=== PATIENT | female | born 1970 | race Caucasian/White ===

== ENCOUNTER 2020-03-09 07:53 | Outpatient (CLI) | payer OTHER, SELFPAY ==
--- NOTE | ~2020-03-09 | DEXA_ITS ---
Bone Density Report Name: Jennifer Castro Age: 49 Sex: Female Ethnicity: White Date of : 1970 Indication: osteopenia; prior fracture; hysterectomy; Referring Provider: Molly Mckeon Study: Bone densitometry was performed. Exam Date: March 09, 2020 Accession number: [id number] Bone Density: Region BMD T-score Z-score Classification AP Spine (L1-L4) 0.846 -1.8 -1.0 Osteopenia Femoral Neck (Left) 0.614 -2.1 -1.3 Osteopenia Total Hip (Left) 0.789 -1.3 -0.8 Osteopenia Total Hip Bilateral Avg 0.781 -1.4 -0.8 Osteopenia Femoral Neck (Right) 0.605 -2.2 -1.4 Osteopenia Total Hip (Right) 0.773 -1.4 -0.9 Osteopenia World Health Organization criteria for BMD impression classify patients as: Normal (T-score at or above -1.0), Osteopenia (T-score between -1.0 and -2.5), or Osteoporosis (T-score at or below -2.5). 10-year Fracture Risk(1): Major Osteoporotic Fracture 11% Hip Fracture 1.9% Reported Risk Factors: [place] (), Neck BMD=0.605, BMI=24.7, previous fracture (1) FRAX(R) Version 3.08. Fracture probability calculated for an untreated patient. Fracture probability may be lower if the patient has received treatment. Previous Exams: Region Exam Age BMD T-score BMD Change BMD Change Date g/cm2 vs Baseline vs Previous AP Spine(L1-L4) 03/09/2020 49 0.846 -1.8 -0.177(-17.3%) -0.055(-6.1%)* 11/26/2017 47 0.901 -1.3 -0.122(-11.9%) -0.028(-3.0%)* 08/09/2015 45 0.929 -1.1 -0.094(-9.2%)# -0.012(-1.3%)# 08/13/2011 41 0.941 -1.0 -0.082(-8.0%)# -0.082(-8.0%)# 09/08/2008 38 1.023 -0.2 Total Hip(Left) 03/09/2020 49 0.789 -1.3 -0.089(-10.2%) -0.131(-14.2%) 11/26/2017 47 0.920 -0.2 0.042(4.7%)# 0.056(6.4%)* 08/09/2015 45 0.864 -0.6 -0.014(-1.6%)# -0.034(-3.8%)# 08/13/2011 41 0.898 -0.4 0.020(2.3%)# 0.020(2.3%)# 09/08/2008 38 0.878 -0.5 Total Hip(Right) 03/09/2020 49 0.773 -1.4 -0.099(-11.4%) -0.141(-15.5%) 11/26/2017 47 0.914 -0.2 0.042(4.8%)# 0.051(5.9%)* 08/09/2015 45 0.864 -0.6 -0.009(-1.0%)# -0.032(-3.5%)# 08/13/2011 41 0.895 -0.4 0.023(2.6%)# 0.023(2.6%)# 09/08/2008 38 0.872 -0.6 *Denotes significance at 95% confidence level, LSC for AP Spine = 0.022 g/cm2, LSC for Total Hip = 0.027 g/cm2 Clinical Information Provided by Patient: Has had a low trauma fracture Has the following medical conditions: Hysterectomy Patient maximum height was 63 Menopause Age: 31 Drinks caffeinated beverages Onset of me
== END 2020-03-09 07:54 | disposition home or self-care (01) ==
LOC: ANHIMG 07:54
PROVIDERS: PCP Internal Medicine; Visit Provider Student in an Organized Health Care Education/Training Program
DX: Z78.0 Asymptomatic menopausal state (principal); M85.88 Other specified disorders of bone density and structure, other site; M85.852 Other specified disorders of bone density and structure, left thigh; M85.851 Other specified disorders of bone density and structure, right thigh
CPT/HCPCS: 77080

== ENCOUNTER → 2020-05-31 12:55 | Outpatient (CLI) | payer OTHER, SELFPAY ==
--- NOTE | ~2020-05-31 | MM_ITS ---
EXAMINATION: MM screening binh BI w robbie HISTORY: Screening mammogram TECHNIQUE: Craniocaudal and mediolateral oblique 3-D tomosynthesis images were obtained and synthetic 2-D images were generated. CAD analysis was submitted and interpreted. COMPARISON: 04/27/2019, 920 bilateral digital screening mammogram examinations BREAST PARENCHYMAL COMPOSITION: There are scattered areas of fibroglandular density. FINDINGS: There is no evidence of suspicious mass, calcification, or architectural distortion to sugg est malignancy in either breast. There has been no suspicious interval change. IMPRESSION: 1. No mammographic evidence of malignancy. 2. Recommend routine screening mammography in one year. BI-RADS Category 1: Negative Reviewed, dictated and finalized at location A. RVISOR SOUND TECHNICIAN
== END ==
PROVIDERS: PCP Internal Medicine; Visit Provider Student in an Organized Health Care Education/Training Program
DX: Z12.31 Encounter for screening mammogram for malignant neoplasm of breast (principal)
CPT/HCPCS: 77063; 77067

== ENCOUNTER → 2021-07-24 12:08 | Outpatient (CLI) | payer OTHER, SELFPAY ==
--- NOTE | ~2021-07-24 | MM_ITS ---
EXAMINATION: MM screening binh BI w robbie HISTORY: Screening TECHNIQUE: Craniocaudal and mediolateral oblique 3-D tomosynthesis images were obtained and synthetic 2-D images were generated. CAD analysis was submitted and interpreted. COMPARISON: Comparison to multiple prior studies sequentially, with oldest reviewed study dated 12/18. BREAST PARENCHYMAL COMPOSITION: There are scattered areas of fibroglandular density. FINDINGS: There is no evidence of suspicious mass, calcification, or architectural distortion to sugg est malignancy in either breast. There has been no suspicious interval change. IMPRESSION: 1. No mammographic evidence of malignancy. 2. Recommend routine screening mammography in one year. BI-RADS Category 1: Negative Reviewed, dictated and finalized at location B. ERN AND CHAIN MAKER
== END ==
PROVIDERS: PCP Internal Medicine; Visit Provider Student in an Organized Health Care Education/Training Program
DX: Z12.31 Encounter for screening mammogram for malignant neoplasm of breast (principal)
CPT/HCPCS: 77063; 77067

== ENCOUNTER → 2022-08-03 15:50 | Outpatient (CLI) | payer OTHER, SELFPAY ==
--- NOTE | ~2022-08-03 | MM_ITS ---
EXAMINATION: MM screening binh BI w robbie HISTORY: Screening TECHNIQUE: Craniocaudal and mediolateral oblique 3-D tomosynthesis images were obtained and synthetic 2-D images were generated. CAD analysis was submitted and interpreted. COMPARISON: Comparison to multiple prior studies sequentially, with oldest reviewed study dated 02/18. BREAST PARENCHYMAL COMPOSITION: There are scattered areas of fibroglandular density. FINDINGS: There is no evidence of suspicious mass, calcification, or architectural distortion to sugg est malignancy in either breast. There has been no suspicious interval change. IMPRESSION: 1. No mammographic evidence of malignancy. 2. Recommend routine screening mammography in one year. BI-RADS Category 1: Negative Reviewed, dictated and finalized at location A. EE DEVELOPER
== END ==
PROVIDERS: PCP Obstetrics & Gynecology; Visit Provider Obstetrics & Gynecology
DX: Z12.31 Encounter for screening mammogram for malignant neoplasm of breast (principal)
CPT/HCPCS: 77063; 77067

== ENCOUNTER 2023-04-22 16:42 | Observation (INO) | payer OTHER, SELFPAY ==
[2023-04-22] VITALS (24 sets, daily range): BP systolic 123–152; BP diastolic 76–95; PULSE 69–106; RESP 11–19; TEMP 36.2–36.5; O2SAT 97–100; BMI 25.7
--- NOTE | ~2023-04-22 | XR_ITS ---
EXAMINATION: XR chest 2V DATE: 04/22/2023 16:58 INDICATION: Chest pain. Numbness of hands. TECHNIQUE: Frontal and lateral views of the chest were obtained. COMPARISON: Chest 2 views 08/19/2009 FINDINGS: There is mild scarring at the lung apices. No pleural effusion or pneumothorax. The heart s ize is normal. IMPRESSION: 1. Stable mild scarring at the lung apices. Reviewed, dictated and finalized at location E.
--- NOTE | ~2023-04-22 | NM_ITS ---
EXAMINATION: NM stress w perf spect multi DATE: 04/23/2023 13:12 INDICATION: Chest pain TECHNIQUE: Rest images were obtained following intravenous administration of 10.2 mCi Tc99m tetrofosm in (MediaMath). The patient performed an exercise activity. At peak exercise, 32.7 mCi Tc99m tetrofosmi n (Dtimeview) was administered intravenously, and stress images were obtained. Data was reconstructed i nto short axis and horizontal and vertical long axis SPECT images. Gated SPECT images were also obtai khang. COMPARISON: None. FINDINGS: There is normal left ventricular perfusion without definite evidence of reversible or fixed perfusion abnormality to suggest ischemia or infarction. There is normal left ventricular chamber size, wall motion and ejection fraction. Left ventricular ejection fraction measures >70%. IMPRESSION: 1. Normal myocardial perfusion at rest and during stress. 2. Left ventricular ejection fraction measuring >70%. Reviewed, dictated and finalized at location A.
--- NOTE | 2023-04-22 16:44 | ECG_ITS ---
Measurements Intervals [place] Rate: 99 P: 67 VA: 133 QRS: 12 QRSD: 82 T: 37 QT: 337 QTc: 433 Interpretive Statements SINUS RHYTHM BASELINE ARTIFACT POSSIBLE LEFT ATRIAL ENLARGEMENT [-0.1mV P-WAVE IN V1/V2] MODERATE ST DEPRESSION [0.05+ mV ST DEPRESSION] ABNORMAL ECG COMPARED TO ECG 03/12/2019 19:27:07 ST (T WAVE) DEVIATION NOW PRESENT Electronically Signed On 04-22-2023 17:29:28 CDT by Preston Segura M.D.
[2023-04-22 17:00] LABS: Basophils Absolute Auto 0.1 K/mm3 (0.0-0.1); Basophils Percent Auto 1.2 % (0.2-1.2); Eosinophils Absolute Auto 0.1 K/mm3 (0-0.3); Eosinophils Percent Auto 1.1 % (0-4.4); Hematocrit 47.5 % (37.0-47.0); Hemoglobin 15.5 g/dL (12.0-15.0); Immature Granulocyte Absolute 0.02 K/mm3 (0.00-0.031); Immature Granulocyte Percent A 0.2 % (0-0.5); Lymphocytes Absolute Auto 3.06 K/mm3 (0.9-3.2); Lymphocytes Percent Auto 34.5 % (18.3-44.2); Mean Corpuscular HGB Conc 32.6 g/dl (32-36); Mean Platelet Volume 9.2 fl (7.4-10.4); Monocytes Absolute Auto 0.6 K/mm3 (0.1-0.6); Monocytes Percent Auto 6.8 % (2.6-8.5); Neutrophils Percent Auto 56.2 % (45.5-73.1); Platelet Count Result 283 k/mm3 (150-375); Red Cell Distribution Width 11.9 % (11.5-14.5); White Blood Count 8.9 K/mm3 (4.5-10.0)
[2023-04-22 17:10] LABS: Prothrombin Time 13.4 Seconds (11.1-14.7)
[2023-04-22] MEDS: ASPIRIN 81 MG CHEWABLE TABLET 324 MG PO (17:10)
[2023-04-22 17:11] LABS: Partial Thromboplastin Time 32.3 SECONDS (22.3-36.8)
[2023-04-22 17:13] LABS: Alanine Aminotransferase 22 U/L (6-35); Alkaline Phosphatase 128 U/L (38-126); Anion Gap 11 mmol/L (8-16); Aspartate Amino Transferase 37 U/L (14-36); Bilirubin,Total 1.5 mg/dL (0.2-1.3); Blood Urea Nitrogen 9 mg/dL (7-17); Calcium 9.5 mg/dL (8.4-10.2); Carbon Dioxide 26 mmol/L (22-30); Chloride 101 mmol/L (98-107); Estimated CRCL calculation 76 ml/min; Estimated Glomerular Filt Rate > 60; Glucose 124 mg/dL (65-110); Lipase 168 U/L (23-300); Potassium 3.1 mmol/L (3.4-5.0); Sodium 138 mmol/L (137-145)
[2023-04-22 17:24] LABS: Troponin I < 0.012 ng/mL (0.000-0.034)
[2023-04-22] MEDS: NITROGLYCERIN SL 0.4 MG TABLET SUBLINGUAL (17:25)
--- NOTE | 2023-04-22 17:26 | ED.CHESTPAIN ---
HPI - Chest Pain General Chief Complaint: Chest Pain Stated Complaint: chest pain Time Seen by Provider: 04/22/23 16:57 History of Present Illness HPI narrative: Pt presents with chest pressure and SOB since 1600. Pt says radiates to neck. Pt has not had recent CP. onset 02/14 now 09/14. Pt had normal cardiac cath years ago but no cardiology visits since. Related Data Home Medications Medication Instructions Recorded Confirmed ascorbate calcium (vitamin C) 500 500 mg PO DAILY 10/04/20 10/10/21 mg tablet multivitamin (Daily Multi-Vitamin 1 tablet PO DAILY 10/04/20 10/10/21 tablet) L.helveticus-Bifidobacterium cap PO 01/21/23 long-mag cit 3 billion cell-57 mg capsule (Mood Support Probiotic) ashwakhloedha root extract 300 mg 1,300 mg PO 01/21/23 capsule Allergies Allergy/AdvReac Type Severity Reaction Status Date / Time No Known Allergies Allergy Unknown Verified 01/21/23 14:42 Review of Systems Review of Systems: All systems reviewed & are unremarkable except as noted in HPI and below PMFSH Past Medical History Medical History Anxiety Depression HPV (human papilloma virus) infection Migraines Mitral valve disease Osteoporosis Surgical History Surgical History History of cryosurgery Cervical Hx of appendectomy Hx of laparoscopy Endometriosis Hx of total hysterectomy with removal of both tubes and ovaries 2001 Blairs teeth removed Family History Family History Father Diabetes mellitus, Onset Age: 60 Mother Family history of osteoporosis Other COPD (chronic obstructive pulmonary disease) Family history of malignant neoplasm of breast Hypertension Social History Social History Smoking status: Former smoker Second hand tobacco smoke exposure: No Alcohol intake: never Substance use: never Lack of Transportation: No Lack of Food: Never True Current Housing: I Have Housing Concerned About Future Housing: No Difficulty Paying Gas/Electric Bills: No Difficulty Paying for Meds: No Currently Unemployed: No Education: Master's Degree or Higher Difficulty w/ Childcare or Family Care: No Exam Const: General: healthy appearing Nutritional Appearance: well nourished Orientation/consciousness: patient oriented x3 Limitations: no limitations Resp: Effort & Inspection: normal respiratory effort Auscultation: clear to auscultation bilaterally Cardio: Rate: regular rate Rhythm: regular rhythm GI: GI Palp: Yes Soft to palpation Auscultation: normal bowel sounds Skin: General skin exam: normal color Rashes: no rashes Neuro: General: patient oriented x3, moves all extremities, no meningeal signs and no focal motor deficits Cranial nerves: Yes Nystagmus not present Speech: normal speech Extrem: General: normal to inspection and no clubbing, cyanosis or edema Psych: Mental Status: mental status grossly normal Affect: normal affect Attitude: cooperative Course Vital Signs Vital signs: Vital Signs Temperature 97.7 F 04/22/23 16:43 Pulse Rate 94 04/22/23 16:43 Respiratory Rate 18 04/22/23 16:43 Blood Pressure 152/91 H 04/22/23 16:43 Pulse Oximetry 100 04/22/23 16:43 Oxygen Delivery Room Air 04/22/23 16:43 Temperature 97.7 F 04/22/23 16:43 Pulse Rate 82 04/22/23 20:36 Respiratory Rate 19 04/22/23 20:36 Blood Pressure 134/88 04/22/23 20:16 Pulse Oximetry 100 04/22/23 20:36 Oxygen Delivery Room Air 04/22/23 17:00 MDM - Chest Pain MDM Narrative Medical decision making narrative: Pt pain free at 1750. Will give nitro paste and a little morphine for RODRIGUEZ. H 2 E 2 A 1 R 0 T 0 =5. discussed with Dr Burroughs and agrees to admit Differential Diagnosis Differential demetra
--- NOTE | 2023-04-22 17:50 | PC.NURSE ---
Two doses of nitroglycerin administered q5 mins with resolution of patient's chest discomfort and back pain. Patient does report a severe RODRIGUEZ at this time. updated.
[2023-04-22] MEDS: NITROGLYCERIN OINTMENT 1 INCH DOSE TRANSDERM (18:14)
[2023-04-22 20:09] LABS: Troponin I < 0.012 ng/mL (0.000-0.034)
--- NOTE | 2023-04-22 20:31 | PM.IMHP ---
H&P: HPI History of Present Illness Date/Time: 04/22/23 20:31 Chief Complaint: Chest pain Narrative: 52-year-old female with a past medical history of anxiety/depression, prior abnormal stress test with normal cardiac catheterization 2009 and borderline abnormal cholesterol who presented to the ER with chest pain. The patient reports that she has stop by her office at work. She was at work for about an hour and then when she went to leave and was walking to her car she started noticing her heart beating really hard. She felt as if her heart was going to beat out of her chest. This symptoms lasted about 15 minutes. After several minutes of this sensation she did notice it moving up into her neck and had some tightness there as well. She also noticed that the fingers on her left hand started to change color to purple and started to tingle. After several more minutes her fingers on her right hand were tingling as well. The pain was 8/10 in intensity and she was quite concern. She sat there and did some deep breathing and coming exercises which did improve her symptoms enough that she felt as if she could drive. When she was just about home she was still having some symptoms so she decided come into the ER for evaluation. She reports that when she actually got to our facility she by that time was having some tingling in her feet and was having some cramping and twitching of the muscles in her calves. She also felt very shaky at that time. She had some associated shortness of breath and then heavy breathing as well. She was concerned as she does have a family history of premature coronary disease with her father who had type 1 diabetes to had 1st heart attack in his 40s. In the ER patient received full-dose aspirin and 2 sublingual nitro. Her pain had already improved prior to coming to the ER with down to 3/10 intensity. After 2 sublingual nitro pain had resolved. Initial EKG demonstrated some ST depressions in lateral leads. She has had 3 neg troponins. Repeat EKG demonstrated normal sinus rhythm. Patient was mildly hypokalemic in the ER in supplementation has been provided.. She reports that it had a stress test in 2009 due to similar symptoms. She had a stress echo at that time that was abnormal and subsequently had a cardiac catheterization that demonstrated normal coronary arteries. She does work out twice a week. She does not usually have symptoms when she is working out. However, she does report that she has been more tired over the last few months and has been having some intermittent chest tightness. She reports that she often feels this way when she is at the upper limit of her weight range. She usually fluctuates about 10 lb in weight at baseline. Her significant other does report that she snores. Source of information is patient report and review of external records. Patient's significant other also provide some history with patient's permission. Review of Systems Review of Systems: 12 systems were reviewed with pertinent positives and negatives per HPI. Except as documented in the HPI, all other systems were reviewed and are negative. She reports chronic constipation. Her last bowel movement was yesterday. [facility] Past Medical History Medical History (Updated 04/23/23 @ 00:52 by Shaila Burroughs DO) Anxiety Chronic constipation Depression HPV (human papilloma virus) infection Migraines Mitral valve disease Osteopenia after menopause Surgical History Surgical History (Updated 04/23/23 @ 00:25 by Shaila Burroughs DO) History of cryosurgery Cervical Hx of appendectomy Hx of laparoscopy Endometriosis Hx of total hysterectomy with removal of both tubes and ovaries 2001 due to endometriosis Leroy teeth removed Family History Family History Father Diabetes mellitus, Onset Age: 60 Mother Family history of osteoporosis Other COPD (chr
[2023-04-22] MEDS: POTASSIUM CHLORIDE 20 MEQ PACKET (FOR LIQUID) 40 MEQ PO (20:43)
--- NOTE | 2023-04-22 21:28 | ADMGEN ---
This patient, Jennifer Castro, was admitted to IMU Room 201-01. Patient/family oriented to hospital policies and general routines including ID bracelet, bed and alarms, visiting hours, pain management, procedures, bathroom and other care routines, personal items, smoking policy, room service/diet, and visiting hours. Information on how to activate the Rapid Response Team has been discussed. Patient/Family are encouraged to report perceived risks to care and to ask questions if they do not understand what they are told or what they should do.
[2023-04-22 23:10] LABS: Troponin I < 0.012 ng/mL (0.000-0.034)
--- NOTE | 2023-04-22 23:31 | ECG_ITS ---
Measurements Intervals [place] Rate: 102 P: 65 MT: 129 QRS: 12 QRSD: 81 T: 42 QT: 317 QTc: 414 Interpretive Statements SINUS TACHYCARDIA POSSIBLE LEFT ATRIAL ENLARGEMENT [-0.1mV P WAVE IN V1/V2] NONSPECIFIC ST & T-WAVE ABNORMALITY ABNORMAL RHYTHM ECG COMPARED TO ECG 04/22/2023 16:49:22 SINUS TACHYCARDIA NOW PRESENT Electronically Signed On 04-23-2023 14:53:56 CDT by Daisy Arciniega M.D.
--- NOTE | 2023-04-22 23:34 | ECG_ITS ---
Measurements Intervals [place] Rate: 69 P: 39 TX: 131 QRS: 26 QRSD: 81 T: 42 QT: 398 QTc: 427 Interpretive Statements SINUS RHYTHM COMPARED TO ECG 04/22/2023 17:15:09 SINUS RHYTHM NOW PRESENT Electronically Signed On 04-23-2023 14:58:28 CDT by Daisy Arciniega M.D.
[2023-04-23] VITALS (11 sets, daily range): BP systolic 117–124; BP diastolic 66–77; PULSE 60–89; RESP 14–18; TEMP 36.3–36.6; O2SAT 98–100
--- NOTE | 2023-04-23 | EST_ITS ---
Patient Info Name: Jennifer Castro Age: 52 years : 1970 Gender: Female Ht: 62 in Wt: 140 lbs BSA: 1.68 m2 HR: 74 bpm BP: 138 / 95 mmHg Heart Rhythm: Sinus Rhythm Exam Date: 04/23/2023 11:52 AM Exam Location: [facility] Stress Patient Status: Outpatient Admit Date: 04/22/2023 Staff Ordering Physician: Shaila Burroughs DO Attending Provider: Shaila Burroughs DO Exercise Technologist: Wendy Mejia CT Exercise Physician: Darin Bernard DO Exam Type: CA stress test treadmill w NM Study Info Indications R07.89 - Other chest pain A nuclear stress test was performed. Summary 1. 1. Negative [place] exercise stress test for ischemic ST changes by ECG criteria. 2. 2. Good functional capacity, achieving 10 METs of workload. 3. 3. Appropriate HR response to exercise. 4. 4. Appropriate HR recovery at 1 minute post exercise. 5. 5. Nuclear scan to follow and will be reported separately. Please correlate with it. 6. 6. Patient informed of the above results. Protocol: [place] Stress ECG Details Stage: REST Duration (min): 1 min : 57 sec Speed (mph): 0.0 Grade (%): 0 HR (bpm): 75 SBP (mmHg): 138 DBP (mmHg): 95 METS: --- Stage: REST Duration (min): 12 min : 19 sec Speed (mph): 0.0 Grade (%): 0 HR (bpm): 84 SBP (mmHg): 138 DBP (mmHg): 95 METS: --- Stage: STAGE 1 Duration (min): 1 min : 0 sec Speed (mph): 1.7 Grade (%): 10 HR (bpm): 103 SBP (mmHg): 138 DBP (mmHg): 95 METS: --- Stage: STAGE 1 Duration (min): 2 min : 0 sec Speed (mph): 1.7 Grade (%): 10 HR (bpm): 109 SBP (mmHg): 138 DBP (mmHg): 95 METS: --- Stage: STAGE 1 Duration (min): 3 min : 0 sec Speed (mph): 1.7 Grade (%): 10 HR (bpm): 123 SBP (mmHg): 168 DBP (mmHg): 96 METS: --- Stage: STAGE 2 Duration (min): 1 min : 0 sec Speed (mph): 2.5 Grade (%): 12 HR (bpm): 125 SBP (mmHg): 168 DBP (mmHg): 96 METS: --- Stage: STAGE 2 Duration (min): 2 min : 0 sec Speed (mph): 2.5 Grade (%): 12 HR (bpm): 133 SBP (mmHg): 173 DBP (mmHg): 89 METS: --- Stage: STAGE 2 Duration (min): 3 min : 0 sec Speed (mph): 2.5 Grade (%): 12 HR (bpm): 134 SBP (mmHg): 173 DBP (mmHg): 89 METS: --- Stage: STAGE 3 Duration (min): 1 min : 0 sec Speed (mph): 3.4 Grade (%): 14 HR (bpm): 141 SBP (mmHg): 168 DBP (mmHg): 86 METS: --- Stage: STAGE 3 Duration (min): 2 min : 0 sec Speed (mph): 3.4 Grade (%): 14 HR (bpm): 159 SBP (mmHg): 168 DBP (mmHg): 86 METS: --- Stage: STAGE 3 Duration (min): 2 min : 10 sec Speed (mph): 3.4 Grade (%): 14 HR (bpm): 160 SBP (mmHg): 168 DBP (mmHg): 86 METS: --- Stage: RECOVERY Duration (min): 0 min : 49 sec Speed (mph): 0.0 Grade (%): 0 HR (bpm): 141 SBP (mmHg): 190 DBP (mmHg): 84 METS: --- Stage: RECOVERY Duration (min): 1 min : 49 sec Speed (mph): 0.0 Grade (%): 0 HR (bpm):
[2023-04-23 05:32] LABS: Anion Gap 4 mmol/L (8-16); Blood Urea Nitrogen 9 mg/dL (7-17); Calcium 8.6 mg/dL (8.4-10.2); Carbon Dioxide 29 mmol/L (22-30); Chloride 105 mmol/L (98-107); Estimated CRCL calculation 73 ml/min; Estimated Glomerular Filt Rate > 60; Glucose 85 mg/dL (65-110); Magnesium 2.2 mg/dL (1.6-2.3); Potassium 3.9 mmol/L (3.4-5.0); Sodium 138 mmol/L (137-145)
[2023-04-23 05:33] LABS: Cholesterol 238 mg/dL (0-200); HDL Direct 55 mg/dL; Triglycerides 82 mg/dL (<150)
[2023-04-23 05:46] LABS: LDL Cholesterol Direct 135 mg/dL
--- NOTE | 2023-04-23 10:25 | PM.IMPN ---
Progress Note: A&P Assessment and Plan (1) Chest pain: Qualifiers: Chest pain type: unspecified Qualified Code(s): R07.9 - Chest pain, unspecified Code(s): R07.9 - Chest pain, unspecified Status: Acute Plan Chest pain atypical family history of premature coronary artery disease and a abnormal EKG. received full-dose aspirin in the ER and 2 doses of sublingual nitro with resolution of her pain. 1 in of nitropaste was placed in the ER. Consult fabric lay out worker cardiac evaluation Repeat EKG on arrival to IMU was normal. No evidence of arrhythmia on telemetry. continue to monitor. treadmill nuclear medicine stress is negative of cardiac ischemia Warehouse Attendant recommended discharge patient today, and fabric lay out worker will follow-up patient in office mild hypokalemia POA received oral supplementation. Corrected Patient does report some fatigue. Normal tSH. history of snoring. outpatient polysomnogram if symptoms persist. Patient has been admitted as observation status. Subjective Date/time seen: 04/23/23 10:25 Interval history: I saw and examined patient today, patient underwent cardiac catheterization stress test. Patient denies chest pain during stress test, patient also denies short of breath, palpitation, abdomen pain, nausea vomiting acid reflux Exam Narrative: GENERAL: Pleasant, in no acute distress. Well-nourished. - EYES: EOMI. Anicteric. - HENT: Moist mucous membranes. - LUNGS: Clear to auscultation bilaterally, no wheezing, rhonchi, or rales. - CARDIOVASCULAR: Regular rate and rhythm. No murmur. No JVD. - ABDOMEN: Soft, non-tender and non-distended. No palpable masses. - EXTREMITIES: No edema. Peripheral pulses 2+. Non-tender. - NEUROLOGIC: No focal neurological deficits. CN II-XII grossly intact. - PSYCHIATRIC: Awake, Alert and oriented x 3. Appropriate mood and affect. - SKIN: No rashes or lesions. Warm. - LYMPH: No cervical lymphadenopathy. Objective Data Vital Signs Vital Signs: Vital Signs - 24 hr 04/22/23 16:43 04/22/23 17:00 04/22/23 17:00 Temperature 97.7 F Pulse Rate 94 88 Respiratory Rate 18 Blood Pressure 152/91 H Pulse Oximetry 100 Oxygen Delivery Room Air Room Air 04/22/23 17:37 04/22/23 17:42 04/22/23 17:45 Temperature Pulse Rate 106 H 104 H 99 Respiratory Rate 11 L 12 16 Blood Pressure 130/89 Pulse Oximetry 99 99 99 Oxygen Delivery 04/22/23 17:46 04/22/23 17:47 04/22/23 18:03 Temperature Pulse Rate 102 H 95 94 Respiratory Rate 12 17 17 Blood Pressure 132/83 Pulse Oximetry 99 98 100 Oxygen Delivery 04/22/23 18:15 04/22/23 18:16 04/22/23 18:28 Temperature Pulse Rate 87 86 87 Respiratory Rate 14 17 16 Blood Pressure 127/85 139/95 H Pulse Oximetry 100 99 100 Oxygen Delivery 04/22/23 19:09 04/22/23 19:15 04/22/23 19:16 Temperature Pulse Rate 81 79 87 Respiratory Rate 15 16 19 Blood Pressure 123/84 Pulse Oximetry 97 97 97 Oxygen Delivery 04/22/23 19:30 04/22/23 19:31 04/22/23 19:32 Temperature Pulse Rate 82 95 80 Respiratory Rate 12 15 Blood Pressure 129/83 Pulse Oximetry 98 100 98 Oxygen Delivery 04/22/23 20:10 04/22/23 20:15 04/22/23 20:16 Temperature Pulse Rate 78 78 76 Respiratory Rate 15 15 14 Blood Pressure 134/88 Pulse Oximetry 100 100 100 Oxygen Delivery 04/22/23 20:36 04/22/23 22:00 04/22/23 21:25 Temperature 97.2 F L Pulse Rate 82 88 69 Respiratory Rate 19 18 Blood Pressure 131/76 Pulse Oximetry 100 97 Oxygen Delivery 04/22/23 21:30 04/23/23 00:00 04/23/23 00:00 Temperature 97.4 F L Pulse Rate 88 71 71 Respiratory Rate 18 18 18 Blood Pressure 124/66 Pulse Oximetry 97 99 99 Oxygen Delivery Room Air Room Air 04/23/23 03:11 04/23/23 04:00 04/23/23 00:00 Temperature 97.7 F Pulse Rate 71 71 68 Respiratory Rate 18 18 Blood Pressure 117/68 Pulse Oximetry 100 100 Oxyge
--- NOTE | 2023-04-23 11:07 | PC.NURSE ---
Pt to nuclear medicine for lexiscan via wheelchair
--- NOTE | 2023-04-23 11:59 | PM.CNCAR ---
Assessment and Plan Assessment and plan (1) Chest pain: Qualifiers: Chest pain type: unspecified Qualified Code(s): R07.9 - Chest pain, unspecified Code(s): R07.9 - Chest pain, unspecified Status: Acute Assessment and Plan: She has been r/o for AR by serial troponin and EKG. This could be anxiety related. She had LHC via femoral artery and had an unpleasant experience here over 10 years ago that showed normal coronaries. If LHC needed she would like for it to be via radial access. Stress nuclear just being completed. If negative stress test no further cardiac workup is needed and she may be discharged home to f/u with [place] in 1-2 weeks. History of Present Illness History of Present Illness Consult date/time: 04/23/23 11:59 Reason For Visit: Chest Pain/EKG changes Narrative: 52 yr old woman presented to hospital with chest pain and palpitations. She has a history of dyslipidemia, anxiety/depression, family history of CAD with her father with CABG at age 40. Reports she had chest tightness and palpitations when leaving work last night. She has them intermittently but this was much worse so she decided to come to ER. No longer having symptoms. She can walk miles without any problems and exercises regularly without chest pain. Denies orthopnea, PND, edema, dizziness. Review of Systems Review of Systems: All systems reviewed & are unremarkable except as noted in HPI and below Constitutional: Constitutional: Reports as per HPI and Denies fever(s) Cardiovascular: Cardiovascular: Reports as per HPI, Reports chest pain, Reports irregular heart rhythm, Denies leg edema and Denies lightheadedness Respiratory: Respiratory: Reports as per HPI and Denies dyspnea Gastrointestinal: Gastrointestinal: Reports as per HPI and Denies abdominal pain Genitourinary: Genitourinary: Reports as per HPI and Denies dysuria Musculoskeletal: Musculoskeletal: Reports as per HPI and Reports arthralgias Neurologic: Reports as per HPI, Denies dizziness and Denies syncope [facility] Past Medical History Medical History (Updated 04/23/23 @ 00:52 by Shaila Burroughs DO) Anxiety Chronic constipation Depression HPV (human papilloma virus) infection Migraines Mitral valve disease Osteopenia after menopause Surgical History Surgical History (Updated 04/23/23 @ 00:25 by Shaila Burroughs DO) History of cryosurgery Cervical Hx of appendectomy Hx of laparoscopy Endometriosis Hx of total hysterectomy with removal of both tubes and ovaries 2001 due to endometriosis [place] teeth removed Family History Family History Father Diabetes mellitus, Onset Age: 60 Mother Family history of osteoporosis Other COPD (chronic obstructive pulmonary disease) Family history of malignant neoplasm of breast Hypertension Social History Social History (Updated 04/23/23 @ 00:29 by Shaila Burroughs DO) Social History: The patient lives with her life partner, Ana Manning. They have been together since 2005. 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 She has history of alcoholism but has been in recovery for 17 years. She reports that she used to binge drink every weekend. She smoked 1 pack of cigarettes per week but did not start smoking until after she quit drinking alcohol. She only smoked for 2 years prior to quitting. She denies illicit substance use. Code status: Full code Surrogate decision maker: Ana Manning (life partner) Smoking packs per day: 0.25 Smoking cigarettes per day: 5.0 Years smoked: 2 Smoking pack-years: 0.50 Smoking status: Former smoker Tobacco type: cigarettes Second hand tobacco smoke exposure: No Alcohol intake: former Alcohol use details: Patient used to binge drink on the weekend but has been sober since 2005. Substance use: never Lack of Transportation: No L
--- NOTE | 2023-04-23 13:14 | PC.NURSE ---
Pt returned from stress test via wheelchair
--- NOTE | 2023-04-23 14:32 | PM.DS ---
DS: Admitting Diagnosis Discharge Date 04/23/23 Admitting Diagnosis (1) Chest pain: ?Qualifiers: ?Chest pain type:?unspecified? Qualified Code(s):?R07.9 - Chest pain, unspecified ?Code(s): R07.9 - Chest pain, unspecified ?Status:?Acute DS: Discharge Diagnosis Discharge Diagnosis (1) Chest pain: Qualifiers: Chest pain type: unspecified Qualified Code(s): R07.9 - Chest pain, unspecified Code(s): R07.9 - Chest pain, unspecified Status: Acute DS: Summary Hospital Course Hospital Course: Per H&P 52-year-old female with a past medical history of anxiety/depression, prior abnormal stress test with normal cardiac catheterization 2009 and borderline abnormal cholesterol who presented to the ER with chest pain.? The patient reports that she has stop by her office at work.? She was at work for about an hour and then when she went to leave and was walking to her car she started noticing her heart beating really hard.? She felt as if her heart was going to beat out of her chest.? This symptoms lasted about 15 minutes.? After several minutes of this sensation she did notice it moving up into her neck and had some tightness there as well.? She also noticed that the fingers on her left hand started to change color to purple and started to tingle.? After several more minutes her fingers on her right hand were tingling as well.? The pain was 8/10 in intensity and she was quite concern.? She sat there and did some deep breathing and coming exercises which did improve her symptoms enough that she felt as if she could drive.? When she was just about home she was still having some symptoms so she decided come into the ER for evaluation.? She reports that when she actually got to our facility she by that time was having some tingling in her feet and was having some cramping and twitching of the muscles in her calves.? She also felt very shaky at that time.? She had some associated shortness of breath and then heavy breathing as well.? She was concerned as she does have a family history of premature coronary disease with her father who had type 1 diabetes to had 1st heart attack in his 40s.? In the ER patient received full-dose aspirin and 2 sublingual nitro.? Her pain had already improved prior to coming to the ER with down to 3/10 intensity.? After 2 sublingual nitro pain had resolved.? Initial EKG demonstrated some ST depressions in lateral leads.? She has had 3 neg troponins.? Repeat EKG demonstrated normal sinus rhythm.? Patient was mildly hypokalemic in the ER in supplementation has been provided.. The following medical issues have been addressed during hospitalization Chest pain atypical family history of premature coronary artery disease and a abnormal EKG. received full-dose aspirin in the ER and 2 doses of sublingual nitro with resolution of her pain. 1 in of nitropaste was placed in the ER. Consult radiator mechanic cardiac evaluation Repeat EKG on arrival to IMU was normal. No evidence of arrhythmia on telemetry. continue to monitor. treadmill nuclear medicine stress is negative of cardiac ischemia Senior Strategy Manager recommended discharge patient today, and radiator mechanic will follow-up patient in office mild hypokalemia POA received oral supplementation. Corrected Patient does report some fatigue. Normal tSH. history of snoring. outpatient polysomnogram if symptoms persist. Patient has been admitted as observation status. Time Spent with Patient Time attestation: Total time spent providing and/or coordinating discharge services: Exam Narrative: GENERAL: Pleasant, in no acute distress. Well-nourished. - EYES: EOMI. Anicteric. - HENT: Moist mucous membranes. - LUNGS: Clear to auscultation bilaterally, no wheezing, rhonchi, or rales. - CARDIOVASCULAR: Regular rate and rhythm. No murmur. No JVD. - ABDOMEN: Soft, non-tender and non-distended. No palpable masses. - EXTREMI
== END 2023-04-23 15:40 | disposition home or self-care (01) ==
LOC: ANHED 17:56 → ANHIMU 23:15
PROVIDERS: Emergency Medicine; Admitting Provider Internal Medicine; Emergency Provider Emergency Medicine; PCP Family Medicine; Visit Provider Hospitalist
DX: R07.9 Chest pain, unspecified (principal); I20.9 Angina pectoris, unspecified; K59.09 Other constipation; R06.02 Shortness of breath; F41.9 Anxiety disorder, unspecified; F32.A Depression, unspecified; E87.5 Hyperkalemia; G43.909 Migraine, unspecified, not intractable, without status migrainosus; E78.9 Disorder of lipoprotein metabolism, unspecified; R94.31 Abnormal electrocardiogram [ECG] [EKG]; I05.9 Rheumatic mitral valve disease, unspecified; E78.5 Hyperlipidemia, unspecified; M81.0 Age-related osteoporosis without current pathological fracture; Z87.891 Personal history of nicotine dependence; Z79.899 Other long term (current) drug therapy; Z82.62 Family history of osteoporosis; Z82.49 Family history of ischemic heart disease and other diseases of the circulatory system
CPT/HCPCS: 36415; 71046; 78452; 80048; 80053; 80061; 83690; 83735; 84443; 84484; 85025; 85610; 85730; 93005; 93017; 99285; A9270; A9502; G0378

== ENCOUNTER → 2023-05-10 13:18 | Outpatient (CLI) | payer OTHER, SELFPAY ==
--- NOTE | ~2023-05-10 | DEXA_ITS ---
Bone Density Report Name: TANIA HERNANDES Age: 52 Sex: Female Ethnicity: White Date of : 1970 Indication: postmenopausal; screening for osteoporosis; hysterectomy; Referring Provider: ARAVIND ALCARAZ Study: Bone densitometry was performed. Exam Date: May 10, 2023 Accession number: [id number] Bone Density: Region BMD T-score Z-score Classification AP Spine (L1-L4) 0.783 -2.4 -1.4 Osteopenia Femoral Neck (Left) 0.590 -2.3 -1.3 Osteopenia Total Hip (Left) 0.744 -1.6 -1.0 Osteopenia Femoral Neck (Right) 0.566 -2.6 -1.6 Osteoporosis Total Hip (Right) 0.719 -1.8 -1.2 Osteopenia Total Hip Mean 0.732 -1.7 -1.1 Osteopenia World Health Organization criteria for BMD impression classify patients as: Normal (T-score at or above -1.0), Osteopenia (T-score between -1.0 and -2.5), or Osteoporosis (T-score at or below -2.5). 10-year Fracture Risk: FRAX not reported because: Some T-score for Spine Total or Hip Total or Femoral Neck at or below -2.5 Clinical Information Provided by Patient: Has used the following medications: HRT (i.e. estrogen/hormone therapy), Vitamin D, Calcium, MTV Has the following medical conditions: Hysterectomy Patient maximum height was 62.5 Menopause Age: 31 Drinks caffeinated beverages Onset of menses at age 14 Number of children 0 Impression: The patient has osteoporosis, based on the Right Femoral Neck T-score. Discussion: INCREASED RISK OF FRACTURE. BONE DENSITY IS UNDESIRABLY LOW AT ONE OR MORE SKELETAL SITES, CONSISTENT WITH POSTMENOPAUSAL OSTEOPOROSIS. This patient's lowest T-score meets the World Health Organization's (WHO) criteria for osteoporosis at one or more sites (T-score -2.5 or below). In untreated patients, the risk of osteoporotic fracture increases approximately two-fold for each 1.0 SD decrease in T-score. Low bone density is not the only risk factor for fracture; also consider factors such as patient's age, frailty or poor health, risk of falling, risk of injury, previous osteoporotic fracture, family history of osteoporosis, cigarette smoking, low body weight, etc. Not everyone with low bone mineral density has osteoporosis; osteomalacia and other metabolic bone disorders should also be considered. Patients who have osteoporosis should be evaluated for specific diseases and conditions (secondary causes) that may cause or contribute to bone loss. The [place] Association [employer] Clinical Endocrinologists (AACE) and National Osteoporosis Foundation (NOF) recommend pharmacologic intervention for all postmenopausal women whose T-score is in this range. The patient should follow a healthful lifestyle (good nutrition with adequate calcium and vitamin D, and appropriate weight-bearing exercise). Follow-Up: Consider a repeat BMD and Vertebral Fracture Assessment (VFA) exam
== END ==
PROVIDERS: PCP Family Medicine; Visit Provider Registered Nurse
DX: M85.88 Other specified disorders of bone density and structure, other site (principal); M85.852 Other specified disorders of bone density and structure, left thigh; M85.851 Other specified disorders of bone density and structure, right thigh; M81.0 Age-related osteoporosis without current pathological fracture
CPT/HCPCS: 77080

== ENCOUNTER → 2023-08-06 10:27 | Outpatient (CLI) | payer OTHER, SELFPAY ==
--- NOTE | ~2023-08-06 | MM_ITS ---
EXAMINATION: MM screening binh BI w robbie HISTORY: Screening TECHNIQUE: Craniocaudal and mediolateral oblique 3-D tomosynthesis images were obtained and synthetic 2-D images were generated. CAD analysis was submitted and interpreted. COMPARISON: Comparison to multiple prior studies sequentially, with oldest reviewed study dated 03/04. BREAST PARENCHYMAL COMPOSITION: There are scattered areas of fibroglandular density. FINDINGS: There is no evidence of suspicious mass, calcification, or architectural distortion to sugg est malignancy in either breast. There has been no suspicious interval change. IMPRESSION: 1. No mammographic evidence of malignancy. 2. Recommend routine screening mammography in one year. BI-RADS Category 1: Negative Reviewed, dictated and finalized at location A. CIPAL PLANNER
== END ==
PROVIDERS: PCP Family Medicine; Referring Provider Obstetrics & Gynecology
DX: Z12.31 Encounter for screening mammogram for malignant neoplasm of breast (principal)
CPT/HCPCS: 77063; 77067

== ENCOUNTER 2024-02-05 07:53 | Outpatient (CLI) | payer OTHER, SELFPAY ==
--- NOTE | ~2024-02-05 | MMUS_ITS ---
EXAMINATION: MM diagnostic binh LT w robbie, US breast LT limited HISTORY: Palpable left breast lump TECHNIQUE: Additional 3-D tomosynthesis images of the left breast were performed and synthetic 2-D im ages were generated. CAD analysis was submitted and interpreted. High resolution Limited left breast ultrasound was performed. COMPARISON: Comparison to multiple prior studies sequentially, with oldest reviewed study dated 03/24. BREAST PARENCHYMAL COMPOSITION: Not Dense: The breasts are almost entirely fatty. FINDINGS: MAMMOGRAPHIC FINDINGS: There are no suspicious masses, calcifications or architectural distortion in the left breast to sugg est malignancy. ULTRASOUND: Limited left breast ultrasound: Normal heterogeneous echotexture without focal solid or cystic mass. IMPRESSION: 1. No evidence for malignancy in the left breast. 2. Routine yearly screening mammogram and regular clinical breast examination are recommended. BI-RADS Category 1: Negative Reviewed, dictated and finalized at location B. IMPRESSION: 1. No evidence for malignancy in the left breast. 2. Routine yearly screening mammogram and regular clinical breast examination a re recommended. BI-RADS Category 1: Negative
== END 2024-02-05 07:54 ==
LOC: MICIMG 07:54
PROVIDERS: PCP Family Medicine; Visit Provider Obstetrics & Gynecology
DX: N63.25 Unspecified lump in the left breast, overlapping quadrants (principal)
CPT/HCPCS: 76642; 77061; 77065; G0279

== ENCOUNTER 2024-08-11 12:31 | Outpatient (CLI) | payer OTHER, SELFPAY ==
--- NOTE | ~2024-08-11 | MM_ITS ---
EXAMINATION: MM screening binh BI w robbie HISTORY: Screening TECHNIQUE: Craniocaudal and mediolateral oblique 3-D tomosynthesis images were obtained and synthetic 2-D images were generated. CAD analysis was submitted and interpreted. COMPARISON: Comparison to multiple prior studies sequentially, with oldest reviewed study dated 04/08. BREAST PARENCHYMAL COMPOSITION: Not Dense: The breasts are almost entirely fatty. FINDINGS: There is no evidence of suspicious mass, calcification, or architectural distortion to sugg est malignancy in either breast. There has been no suspicious interval change. IMPRESSION: 1. No mammographic evidence of malignancy. 2. Recommend routine screening mammography in one year. BI-RADS Category 1: Negative Reviewed, dictated and finalized at location B. REVIEWER
== END 2024-08-11 12:32 | disposition home or self-care (01) ==
PROVIDERS: PCP Family Medicine; Visit Provider Obstetrics & Gynecology
DX: Z12.31 Encounter for screening mammogram for malignant neoplasm of breast (principal)
CPT/HCPCS: 77063; 77067